=== PATIENT | male | born 1995 | race Caucasian/White ===

== ENCOUNTER 2018-09-12 07:46 | Emergency (ER) | payer SELFPAY ==
[~2018-09-12] VITALS: Ht 190.5 cm; Wt 80.0 kg
[2018-09-12 08:24] LABS: CLARITY,URINE CLEAR (Clear); COLOR,URINE YELLOW (Yellow); UA COLLECTION TYPE CLN CATCH MIDSTREAM
[2018-09-12 08:25] LABS: GLUCOSE, URINE NEGATIVE (Neg); KETONES,URINE NEGATIVE (Neg); LEUKOCYTE ESTERASE ,URINE NEGATIVE (Neg); NITRITES, URINE NEGATIVE (Neg); OCCULT BLOOD,URINE TRACE-LYSED (Neg); PROTEIN,URINE NEGATIVE (Neg); UROBILINOGEN,URINE 0.2 E.U/dL (0.2-1.0)
[2018-09-12 08:30] LABS: BACTERIA,URINE FEW /HPF (Neg); MUCUS STRANDS MODERATE /LPF (Neg); RBC,URINE 0-2 /HPF (0-2); SQUAMOUS EPITHELIAL CELL,UR FEW /LPF (FEW); WBC CLUMPS,URINE FEW /HPF (NEGATIVE)
[2018-09-12] MEDS ORDERED: cephalexin 250mg capsule PO ONE (08:45)
[2018-09-12] MEDS ORDERED: CEPH500C5 PO (08:49)
[2018-09-12 09:18] VITALS: BP 111/72
== END 2018-09-12 09:19 | disposition home or self-care (01) ==
LOC: ER 07:47
DX: N39.0 Urinary tract infection, site not specified (principal); N10 Acute pyelonephritis; J45.909 Unspecified asthma, uncomplicated; Z79.2 Long term (current) use of antibiotics
CPT/HCPCS: 81001; 87088; 99283

== ENCOUNTER 2022-05-30 18:21 | Emergency (ER) | payer OTHER ==
[~2022-05-30] VITALS: Ht 188 cm; Wt 90.9 kg
[2022-05-30 18:31] VITALS: BP 140/84
[2022-05-30] MEDS ORDERED: acetaminophen 325mg tablet PO ONE (20:00)
[2022-05-30] MEDS ORDERED: ibuprofen tablet 400 MG TABLET PO ONE (20:00)
== END 2022-05-30 20:52 | disposition home or self-care (01) ==
LOC: ER 18:23
DX: S60.011A Contusion of right thumb without damage to nail, initial encounter (principal); J45.909 Unspecified asthma, uncomplicated; X58.XXXA Exposure to other specified factors, initial encounter; Y93.89 Activity, other specified; Y92.89 Other specified places as the place of occurrence of the external cause; Y99.8 Other external cause status
CPT/HCPCS: 11740; 73140; 99284